=== PATIENT | female | born 1955 | race Caucasian/White ===

== ENCOUNTER → 2016-11-19 | Outpatient (CLI) | payer BC ==
[~2016-11-19] MED LIST: METHYLIN PO; TOPROL XL50 MG PO
== END ==
LOC: MC.RAD 11:00
DX: Z12.31 Encounter for screening mammogram for malignant neoplasm of breast (principal)

== ENCOUNTER → 2018-01-01 | Outpatient (CLI) | payer BC | LOC: MC.RAD 14:29 | DX: Z12.31 Encounter for screening mammogram for malignant neoplasm of breast (principal) ==

== ENCOUNTER → 2019-01-19 | Outpatient (CLI) | payer BC | LOC: MC.RAD 14:04 | DX: Z12.31 Encounter for screening mammogram for malignant neoplasm of breast (principal); R92.2 Inconclusive mammogram; N63.10 Unspecified lump in the right breast, unspecified quadrant; N63.20 Unspecified lump in the left breast, unspecified quadrant ==

== ENCOUNTER → 2019-01-22 | Outpatient (CLI) | payer BC | LOC: MC.RAD 09:20 | DX: Z12.31 Encounter for screening mammogram for malignant neoplasm of breast (principal); N63.10 Unspecified lump in the right breast, unspecified quadrant ==

== ENCOUNTER → 2019-10-29 | Day surgery (SDC) | payer BC ==
[~2019-10-29] VITALS: Ht 162.6 cm; Wt 58.4 kg
[~2019-10-29] MED LIST changes: +ADDERALL XR20 MG PO; +PRINZIDE 12.5 M1 TAB PO
[2019-10-29 10:10] VITALS: BP 136/88; PULSE 96; TEMP 98.1
[2019-10-29 11:15] VITALS: BP 105/58; PULSE 93; TEMP 97.9
--- NOTE | 2019-10-29 11:15 | NUR ---
Pt to [facility] via cart from ENDO. Pt awake and alert. Denies pain or nausea. Pt ambulates to recliner with stand by assistance. Warm blanket provided. Juice and muffin given per pt request. Will continue to monitor. Call light within reach.
[2019-10-29 11:30] VITALS: BP 111/66; PULSE 87
--- NOTE | 2019-10-29 11:30 | NUR ---
Pt continues to rest. Denies needs. Pt tolerating food and fluids without difficulties. Call light within reach.
[2019-10-29 11:45] VITALS: BP 113/61; PULSE 73
--- NOTE | 2019-10-29 11:45 | NUR ---
Pt continues to rest. Denies needs. Call light within reach.
== END ==
LOC: SDCO 08-13 09:45
DX: Z12.11 Encounter for screening for malignant neoplasm of colon (principal); Z86.010 Personal history of colon polyps; Z88.0 Allergy status to penicillin; Z80.0 Family history of malignant neoplasm of digestive organs; K57.30 Diverticulosis of large intestine without perforation or abscess without bleeding
CPT/HCPCS: J2250; J2405; J3010; J7030

== ENCOUNTER → 2020-02-17 | Outpatient (CLI) | payer BC | LOC: MC.RAD 11:43 | DX: Z12.31 Encounter for screening mammogram for malignant neoplasm of breast (principal) ==

== ENCOUNTER → 2021-03-27 | Outpatient (CLI) | payer BC | LOC: MC.RAD 14:31 | DX: Z12.31 Encounter for screening mammogram for malignant neoplasm of breast (principal) ==

== ENCOUNTER → 2023-08-22 | Outpatient (CLI) | payer BC | LOC: MC.RAD 10:46 | DX: Z12.31 Encounter for screening mammogram for malignant neoplasm of breast (principal) ==